=== PATIENT | female | born 1995 | race African-American/Black ===

== ENCOUNTER 2019-07-03 22:10 | Emergency (ER) | payer BC, OTHER ==
[2019-07-03 22:19] VITALS: BP 121/70; PULSE 102; TEMP 98.7; BMI 31.3
--- NOTE | 2019-07-03 23:02 | PDOC ---
Documentation entered by Surekha Royal SCRIBE, acting as scribe for Opal Saab MD. Opal Saab MD: This documentation has been prepared by the Lele abraham Torie, SCRIBE, under my direction and personally reviewed by me in its entirety. I confirm that the documentation accurately reflects all work, treatment, procedures, and medical decision making performed by me. History of Present Illness - General Chief Complaint: Vaginal Bleeding Stated Complaint: VAGINAL SPOTTING History Source: Patient Exam Limitations: No Limitations - History of Present Illness Initial Comments: 07/03/19 22:37 Patient is a 24 year old female with no significant medical history who presents to the ED with vaginal spotting that began on a sunday-sunday, stopped then began again sunday-. Patient believes she got in April. ROS General: No fevers or chills, no weakness, no weight loss HEENT: No change in vision. No sore throat,. No ear pain CardioVascular: No chest pain or shortness of breath Respiratory:No cough, or wheezing. Gastrointestinal: no nausea, vomiting, diarrhea or constipation, No rectal bleeding : +vaginal bleeding Genitourinary: No dysuria, hematuria, or frequency Musculoskeletal: No joint or muscle pain or swelling Neurologic: No headache, vertigo, dizziness or loss of consciousness Psychiatric: nor depression Skin: No rashes or easy bruising Endocrine: no increased thirst or abnormal weight change Allergic: no skin or latex allergy All other systems reviewed and normal Exam: General: Well-nourished well-developed individual, no acute distress HEENT: Throat: Normal, tonsils normal, no erythema or exudate Neck: Supple, no meningeal signs, no lymphadenopathy Eyes::Pupils equal reactive and round, extraocular motion intact Chest: Nontender to palpation Cardiac: S1-S2 normal, regular rate and rhythm, no murmurs rubs or gallops Respiratory: Lungs clear to auscultation bilateral Abdomen: Soft, nondistended, normal bowel sounds, nontender to palpation diffusely Extremities: Warm, dry, no cyanosis, clubbing, or edema Skin: No rashes Neuro: Alert and oriented x3, nonfocal exam, grossly intact, normal gait Psych: Normal mood and affect 07/03/19 23:01 Past History - Past Medical History Allergies/Adverse Reactions: Allergies Allergy/AdvReac Type Severity Reaction Status Date / Time No Known Allergies Allergy Verified 03/01/13 20:20 Home Medications: Ambulatory Orders No Home Medications 0 dose .ROUTE UTDICT 03/01/13 COPD: No - Psycho Social/Smoking Cessation Hx Smoking Status: No Smoking History: Never smoked Number of Cigarettes Smoked Daily: 0 *Physical Exam - Vital Signs Last Vital Signs Temp Pulse Resp BP Pulse Ox 98.7 F 102 H 16 121/70 100 07/03/19 22:13 07/03/19 22:13 07/03/19 22:13 07/03/19 22:13 07/03/19 22:13 ED Treatment Course - LABORATORY CBC & Chemistry Diagram: 07/03/19 23:00 07/03/19 23:10 Discharge - Discharge Information Problems reviewed: Yes Clinical Impression/Diagnosis: Spontaneous in first trimester Condition: Stable Disposition: HOME - Admission No - Follow up/Referral - Patient Discharge Instructions Additional Instructions: It is very important that you follow-up with your OB call your OB this morning and get an appointment to follow-up as you need to have your hormone level repeated in 48 hours. Return to the emergency department if you develop pelvic pain. Return to the emergency department immediately with ANY new, persistent or worsening symptoms. Continue any medications as previously prescribed by your physician. You should follow up with your primary doctor as soon as possible regarding today's emergency department visit. . Please make sure your doctor reviews the results of your emergency evaluation. Thank you for coming to the Emergency Department today for your care. It was a pleasure to see you today. Please note that your evaluation is INCOMPLETE until you follow-up with your doctor. - Post Discharge Activity
[2019-07-03 23:29] LABS: BASO % 0.5 % (0-2.0); HEMATOCRIT 41.6 % (32.4-45.2); HEMOGLOBIN 13.5 GM/dl (10.7-15.3); LYMPH % 43.2 % (8-40); MCH 28.3 pg (25.7-33.7); MCHC 32.4 g/dl (32.0-36.0); MEAN CELL VOLUME 87.4 fl (80-96); MEAN PLT VOLUME 9.3 fl (7.5-11.1); MONO % 8.9 % (3.8-10.2); NEUT % 46.4 % (42.8-82.8); PLATELET COUNT 243 K/MM3 (134-434); RBC 4.76 M/mm3 (3.60-5.2); RDW 13.4 % (11.6-15.6); WHITE BLOOD COUNT 9.3 K/mm3 (4.0-10.8)
[2019-07-03 23:31] LABS: ALBUMIN 3.8 g/dl (3.4-5.0); BILIRUBIN,TOTAL 0.5 mg/dl (0.2-1); CALCIUM 8.9 mg/dl (8.5-10); CREATININE 0.8 mg/dl (0.55-1.3); TOT PROT 6.7 g/dl (6.4-8.2)
== END 2019-07-04 01:31 | disposition home or self-care (01) ==
LOC: FER 22:10
DX: O03.9 Complete or unspecified spontaneous abortion without complication (principal)
CPT/HCPCS: 36415; 76817-TC; 80053; 81003; 81025; 84702; 85025; 86850; 86900; 86901; 99284-25

== ENCOUNTER 2019-11-03 06:19 | Day surgery (SDC) | payer BC ==
[2019-10-30 16:13] VITALS: BMI 33.2
[2019-11-03] MEDS ORDERED: MIDAZOLAM HCL 2 MG/2 ML SINGLE DOSE VIAL ONE (07:19)
[2019-11-03] MEDS ORDERED: PROPOFOL 20 ML ONE ×5 (07:20→08:50)
--- NOTE | 2019-11-03 07:53 | HP ---
History & Physical Update - History History: No Change (Right Bartholin Abscess) - Physical Physical: No Change - Assessment Assessment: No Change - Plan Plan: No Change (Marsupialization of right bartholin Abscess)
[2019-11-03] MEDS ORDERED: ceFAZolin SODIUM 1 GM VIAL IVPB ONE ×2 (08:04→08:10)
[2019-11-03] MEDS ORDERED: BUPIVACAINE HCL/PF 0.5% (5 MG/ML) 30 ML VIAL IJ ONE ×2 (08:18)
[2019-11-03] MEDS ORDERED: ceFAZolin SODIUM 1 GM VIAL ONE (08:36)
--- NOTE | 2019-11-03 09:06 | OP ---
Operative Note - Note: Operative Date: 11/03/19 Pre-Operative Diagnosis: Right Bartholin Abscess Operation: Right Bartholin Abscess Marsupialization Findings: A right Bartholin Abscess 4cm Post-Operative Diagnosis: Same as Pre-op Surgeon: Franklin Clifton Anesthesiologist/RECTIFICATION PRINTER: Ade Johnson Anesthesia: MAC Estimated Blood Loss (mls): 50 Blood Volume Replaced (mls): 0 Fluid Volume Replaced (mls): 800 Operative Report Dictated: Yes
[2019-11-03] MEDS ORDERED: ONDANSETRON 4 MG/2 ML VIAL IVPUSH PRN (09:08)
[2019-11-03] MEDS ORDERED: ACETAMINOPHEN 325 MG TABLET (FP) PO PRN (09:08)
[2019-11-03] MEDS ORDERED: oxyCODONE HCL 5 MG TABLET PO PRN ×2 (09:08)
[2019-11-03] MEDS ORDERED: LACTATED RINGERS SOLUTION 1,000 ML IV SCH (09:15)
--- NOTE | 2019-11-03 15:36 | OP ---
DATE OF OPERATION: 11/03/2019 PREOPERATIVE DIAGNOSIS: Right Bartholin abscess. POSTOPERATIVE DIAGNOSIS: Right Bartholin abscess. PROCEDURE: Right Bartholin abscess marsupialization. ANESTHESIA: Monitored anesthesia care (MAC). ANESTHESIOLOGIST: Ade Garcia MD COMPLICATIONS: None. ESTIMATED BLOOD LOSS: 50 mL. INTRAVENOUS FLUIDS: 800 mL. FINDINGS: A 4-cm right Bartholin abscess with approximately 20 mL of purulent material drained. DESCRIPTION OF PROCEDURE: The patient was pet preoperatively. Risks, benefits, alternatives of surgery were discussed. All questions were answered. The consent form was reviewed and signed. The patient verbalized her understanding. The patient was brought to the OR with IV running. She was placed on the surgical table in the supine position. Anesthesia was achieved without difficulty. The patient was placed in a dorsal lithotomy position using adjustable Bravo stirrups. She was examined under anesthesia with the findings as described above. The patient was prepped and draped in the usual sterile fashion. A timeout was conducted as per standard protocol. A retractor was introduced inside the vagina for better visualization of the right Bartholin abscess. An incision was made at the vaginal introitus in front of the hymenal ring, over the Bartholin abscess. The incision was carried down to the abscess itself. A large amount of purulent material was drained. Once this was done, the edges of the incision were sutured, trying to sharda the capsule of the abscess and to achieve hemostasis along the incision. Once good hemostasis was achieved, the procedure ended. Sponge, lap, instrument counts were correct. Once again, hemostasis was confirmed. The patient was returned to the supine position and transferred to the recovery room in stable condition and awake. DOYLE MENDOZA M.D. [id number]
[2019-11-03 16:18] VITALS: BP 136/71; PULSE 69
[2019-11-03 16:22] VITALS: TEMP 97.8
== END 2019-11-03 13:15 | disposition home or self-care (01) ==
LOC: JASU-SURG 06:19
PROVIDERS: ATTEND Obstetrics & Gynecology
PROC: 0U9L0ZZ Drainage of Vestibular Gland, Open Approach (ICD-10-PCS; principal; 2019-11-03 07:30)
DX: N75.1 Abscess of Bartholin's gland (principal)
CPT/HCPCS: 84703; 87070; 87205; 94760